=== PATIENT | female | born 2000 | race Caucasian/White ===

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

== ENCOUNTER 2020-05-22 12:50 | Emergency (ER) | payer BC ==
[~2020-05-22] VITALS: Ht 162.6 cm; Wt 60.0 kg
[2020-05-22 14:12] LABS: HEMATOCRIT 40.8 % (37.0-47.0); HEMOGLOBIN 13.1 g/dl (12.0-16.0); IMMATURE GRANULOCYTES 0.2 % (0.0-5.0); MEAN CELL VOLUME 85.2 fL CALC (80.0-100.0); MEAN CORPUSCULAR HGB 27.3 pG CALC (26.0-32.0); MEAN CORPUSCULAR HGB CONC 32.1 g/dL CAL (32.0-36.0); NEUT# 5.13 thou/uL (2.00-7.15); RED BLOOD COUNT 4.79 mill/uL (4.20-5.60); RED CELL DISTRI WIDTH 12.6 % (11.5-15.5); URINE BILIRUBIN - DIPSTICK NEGATIVE (NEGATIVE); URINE BLOOD DIPSTICK NEGATIVE (NEGATIVE); URINE COLOR YELLOW; URINE GLUCOSE - DIPSTICK NEGATIVE (NEGATIVE); URINE KETONE NEGATIVE (NEGATIVE); URINE NITRITE - DIPSTICK NEGATIVE (Negative); URINE PH 6.5 (4.5-8.0); URINE PROTEIN - DIPSTICK NEGATIVE (NEG-TRACE); URINE UROBILINOGEN - DIPSTICK 0.2 E.U./dL (0.2)
[2020-05-22 14:16] LABS: URINE LEUK ESTERASE SMALL (NEGATIVE)
[2020-05-22 14:24] LABS: URINE SQUAMOUS EPITHELIAL CELL FEW EPI/hpf (0-FEW)
[2020-05-22 14:31] LABS: ALBUMIN 4.3 g/dL (3.2-5.0); ALKALINE PHOSPHATASE 112 u/l (38-126); BILIRUBIN, TOTAL 0.8 mg/dL (0.0-1.4); BUN 10 mg/dL (7-17); BUN/CREATININE RATIO 14 (12-20 (CALC)); CARBON DIOXIDE 21 mmol/l (22-30); CHLORIDE 106 mmol/l (95-108); CREATININE 0.7 mg/dL (0.5-1.0); GFR > 60 ML/MIN (>=60 (CALC)); GFR FOR AFR.AMER. > 60 ML/MIN (>=60 (CALC)); LIPASE 51 u/l (23-300); POTASSIUM 3.9 mmol/l (3.5-5.1); SGOT/AST 24 u/l (14-36); TOTAL PROTEIN 7.7 g/dL (6.3-8.2)
[2020-05-22 14:32] LABS: ANION GAP 14 (6-22 (CALC)); SODIUM 137 mmol/l (137-146)
[2020-05-22] MEDS ORDERED: ZOFRAN4 MG/TAB PO (16:51)
[2020-05-22 17:06] VITALS: BP 116/68
== END 2020-05-22 17:18 | disposition home or self-care (01) | DRG 392 ==
LOC: ED 12:50
PROVIDERS: Family Medicine
DX: R10.11 Right upper quadrant pain (principal); R11.0 Nausea; K21.9 Gastro-esophageal reflux disease without esophagitis

== ENCOUNTER 2021-01-24 10:44 | Emergency (ER) | payer SELFPAY ==
[~2021-01-24] VITALS: Ht 162.6 cm; Wt 54.5 kg
[~2021-01-24 10:44] MED LIST changes: +ZOFRAN4 MG/TAB PO
[2021-01-24 11:55] LABS: HEMATOCRIT 40.3 % (37.0-47.0); HEMOGLOBIN 13.4 g/dl (12.0-16.0); IMMATURE GRANULOCYTES 0.1 % (0.0-5.0); MEAN CELL VOLUME 86.3 fL CALC (80.0-100.0); MEAN CORPUSCULAR HGB 28.7 pG CALC (26.0-32.0); MEAN CORPUSCULAR HGB CONC 33.3 g/dL CAL (32.0-36.0); NEUT# 3.71 thou/uL (2.00-7.15); RED BLOOD COUNT 4.67 mill/uL (4.20-5.60); RED CELL DISTRI WIDTH 12.9 % (11.5-15.5)
[2021-01-24 12:07] LABS: ALBUMIN 4.5 g/dL (3.2-5.0); ALKALINE PHOSPHATASE 96 u/l (38-126); ANION GAP 13 (6-22 (CALC)); BUN 9 mg/dL (7-17); BUN/CREATININE RATIO 12 (12-20 (CALC)); CARBON DIOXIDE 23 mmol/l (22-30); CHLORIDE 105 mmol/l (95-108); CREATININE 0.7 mg/dL (0.5-1.0); GFR > 60 ML/MIN (>=60 (CALC)); GFR FOR AFR.AMER. > 60 ML/MIN (>=60 (CALC)); LIPASE 53 u/l (23-300); POTASSIUM 3.7 mmol/l (3.5-5.1); SGOT/AST 21 u/l (14-36); SODIUM 137 mmol/l (137-146); TOTAL PROTEIN 7.9 g/dL (6.3-8.2)
[2021-01-24 14:55] VITALS: BP 112/65
[2021-01-25] MEDS ORDERED: HYDROCO/APAP1 TA9 PO (14:25)
[2021-01-25] MEDS ORDERED: ONDANSETRON4 MG PO (14:25)
[2021-02-01] MEDS ORDERED: FIBER625 MG PO (13:52)
[2021-02-01] MEDS ORDERED: FISH OIL1000 MG PO (13:53)
[2021-02-01] MEDS ORDERED: [UNRECOGNIZED DRUG - OTHER] PO (13:55)
[2021-02-01] MEDS ORDERED: TRAMADOL HCL50 MG PO (13:55)
[2021-02-01] MEDS ORDERED: KETOROLAC10 MG PO (13:56)
== END 2021-01-24 14:55 | disposition home or self-care (01) | DRG 392 ==
LOC: ED 10:44
PROVIDERS: Family Medicine
DX: R10.11 Right upper quadrant pain (principal); R11.0 Nausea; K80.20 Calculus of gallbladder without cholecystitis without obstruction; K21.9 Gastro-esophageal reflux disease without esophagitis

== ENCOUNTER 2021-02-05 05:55 | Day surgery (SDC) | payer SELFPAY ==
[~2021-02-05 05:55] MED LIST changes: +FIBER625 MG PO; +FISH OIL1000 MG PO; +HYDROCO/APAP1 TA9 PO; +KETOROLAC10 MG PO; +ONDANSETRON4 MG PO; +TRAMADOL HCL50 MG PO; +[UNRECOGNIZED DRUG - OTHER] PO
[2021-02-05] MEDS ORDERED: PERCOCET 5/325M1 TAB PO (08:58)
[2021-02-05 09:45] VITALS: BP 119/63
== END 2021-02-05 10:05 | disposition home or self-care (01) | DRG 419 ==
LOC: ORM 05:55 → ENDO 05:55 → ORM 07:00 → ENDO 07:00 → ORM 10:05
PROVIDERS: ATTEND Surgery
PROC: 0FT44ZZ Resection of Gallbladder, Percutaneous Endoscopic Approach (ICD-10-PCS; principal; 2021-02-05)
DX: K80.10 Calculus of gallbladder with chronic cholecystitis without obstruction (principal); Z20.822 Contact with and (suspected) exposure to COVID-19
CPT/HCPCS: J2710

== ENCOUNTER 2022-05-23 09:15 | Emergency (ER) | payer BC ==
[~2022-05-23] VITALS: Ht 162.6 cm; Wt 61.3 kg
[2022-05-23] VITALS (8 sets, daily range): BP systolic 109–134; BP diastolic 72–85
[~2022-05-23 09:15] MED LIST changes: +PERCOCET 5/325M1 TAB PO
[2022-05-23 10:39] LABS: HEMATOCRIT 40.1 % (37.0-47.0); HEMOGLOBIN 13.8 g/dl (12.0-16.0); IMMATURE GRANULOCYTES 0.1 % (0.0-5.0); MEAN CELL VOLUME 85.5 fL CALC (80.0-100.0); MEAN CORPUSCULAR HGB 29.4 pG CALC (26.0-32.0); MEAN CORPUSCULAR HGB CONC 34.4 g/dL CAL (32.0-36.0); NEUT# 5.03 thou/uL (2.00-7.15); RED BLOOD COUNT 4.69 mill/uL (4.20-5.60); RED CELL DISTRI WIDTH 12.1 % (11.5-15.5)
[2022-05-23 10:44] LABS: ALBUMIN 4.3 g/dL (3.2-5.0); ALKALINE PHOSPHATASE 96 u/l (38-126); ANION GAP 15 (6-22 (CALC)); BILIRUBIN, TOTAL 0.7 mg/dL (0.0-1.4); BUN 7 mg/dL (7-17); BUN/CREATININE RATIO 10 (12-20 (CALC)); CARBON DIOXIDE 22 mmol/l (22-30); CHLORIDE 106 mmol/l (95-108); CREATININE 0.7 mg/dL (0.5-1.0); GFR FOR AFR.AMER. > 60 ML/MIN (>=60 (CALC)); GFR OTHER RACES > 60 ML/MIN (>=60 (CALC)); POTASSIUM 3.7 mmol/l (3.5-5.1); SGOT/AST 19 u/l (14-36); SODIUM 139 mmol/l (137-146); TOTAL PROTEIN 7.6 g/dL (6.3-8.2)
== END 2022-05-23 12:25 | disposition home or self-care (01) | DRG 103 ==
LOC: ED 09:15
PROVIDERS: Family Medicine
DX: R51.9 Headache, unspecified (principal); I35.9 Nonrheumatic aortic valve disorder, unspecified; Z20.822 Contact with and (suspected) exposure to COVID-19
CPT/HCPCS: J1100; Q9967

== ENCOUNTER 2022-09-24 08:52 | Emergency (ER) | payer BC ==
[~2022-09-24] VITALS: Ht 162.6 cm; Wt 62.0 kg
[2022-09-24] VITALS (18 sets, daily range): BP systolic 103–126; BP diastolic 70–87
[2022-09-24 10:50] LABS: BASO% 0.8 % (0-3); EOS% 1.8 % (0-8); HEMATOCRIT 38.8 % (37.0-47.0); HEMOGLOBIN 13.7 g/dl (12.0-16.0); IMMATURE GRANULOCYTES 0.1 % (0.0-5.0); LYMPH% 26.5 % (15-41); MEAN CELL VOLUME 85.8 fL CALC (80.0-100.0); MEAN CORPUSCULAR HGB 30.3 pG CALC (26.0-32.0); MEAN CORPUSCULAR HGB CONC 35.3 g/dL CAL (32.0-36.0); MONO% 8.1 % (2-13); NEUT# 4.89 thou/uL (2.00-7.15); NEUT% 62.7 % (42-76); RED BLOOD COUNT 4.52 mill/uL (4.20-5.60); RED CELL DISTRI WIDTH 12.3 % (11.5-15.5)
[2022-09-24 10:57] LABS: URINE BILIRUBIN - DIPSTICK NEGATIVE (NEGATIVE); URINE BLOOD DIPSTICK NEGATIVE (NEGATIVE); URINE COLOR YELLOW; URINE GLUCOSE - DIPSTICK NEGATIVE (NEGATIVE); URINE KETONE NEGATIVE (NEGATIVE); URINE LEUK ESTERASE NEGATIVE (NEGATIVE); URINE PH 6.5 (4.5-8.0); URINE PROTEIN - DIPSTICK NEGATIVE (NEG-TRACE); URINE UROBILINOGEN - DIPSTICK 0.2 E.U./dL (0.2)
[2022-09-24 10:59] LABS: ALBUMIN 4.3 g/dL (3.2-5.0); ALKALINE PHOSPHATASE 98 u/l (38-126); ANION GAP 9 (6-22 (CALC)); BILIRUBIN, TOTAL 0.5 mg/dL (0.0-1.4); BUN 5 mg/dL (7-17); BUN/CREATININE RATIO 8 (12-20 (CALC)); CARBON DIOXIDE 25 mmol/l (22-30); CHLORIDE 109 mmol/l (95-108); CREATININE 0.6 mg/dL (0.5-1.0); GFR FOR AFR.AMER. > 60 ML/MIN (>=60 (CALC)); GFR OTHER RACES > 60 ML/MIN (>=60 (CALC)); LIPASE 41 u/l (23-300); POTASSIUM 3.8 mmol/l (3.5-5.1); SGOT/AST 19 u/l (14-36); SODIUM 138 mmol/l (137-146); TOTAL PROTEIN 7.3 g/dL (6.3-8.2)
[2022-09-24 11:03] LABS: URINE NITRITE - DIPSTICK NEGATIVE (Negative)
[2022-09-24] MEDS ORDERED: PROTONIX40 M2 PO (13:58)
== END 2022-09-24 14:43 | disposition home or self-care (01) | DRG 392 ==
LOC: ED 08:52
PROVIDERS: Family Medicine
DX: R10.31 Right lower quadrant pain (principal); R10.11 Right upper quadrant pain
CPT/HCPCS: Q9967

== ENCOUNTER 2022-12-22 21:24 | Emergency (ER) | payer BC ==
[2022-12-22] VITALS (7 sets, daily range): BP systolic 100–124; BP diastolic 59–87
[~2022-12-22] VITALS: Ht 162.6 cm; Wt 54.0 kg
[~2022-12-22 21:24] MED LIST changes: +PROTONIX40 M2 PO
[2022-12-22 22:57] LABS: ALBUMIN 4.6 g/dL (3.2-5.0); ALKALINE PHOSPHATASE 106 u/l (38-126); ANION GAP 14 (6-22 (CALC)); BILIRUBIN, TOTAL 0.4 mg/dL (0.02-1.3); BUN 7 mg/dL (7-17); BUN/CREATININE RATIO 12 (12-20 (CALC)); CARBON DIOXIDE 21 mmol/l (22-30); CHLORIDE 107 mmol/l (95-108); CREATININE 0.6 mg/dL (0.5-1.0); GFR FOR AFR.AMER. > 60 ML/MIN (>=60 (CALC)); GFR OTHER RACES > 60 ML/MIN (>=60 (CALC)); LIPASE 46 u/l (23-300); POTASSIUM 3.8 mmol/l (3.5-5.1); SGOT/AST 30 u/l (14-36); SODIUM 138 mmol/l (137-146); TOTAL PROTEIN 8.1 g/dL (6.3-8.2)
[2022-12-22 22:59] LABS: BASO% 0.5 % (0-3); EOS% 0.1 % (0-8); HEMATOCRIT 41.9 % (37.0-47.0); HEMOGLOBIN 13.8 g/dl (12.0-16.0); IMMATURE GRANULOCYTES 0.1 % (0.0-5.0); LYMPH% 10.9 % (15-41); MEAN CORPUSCULAR HGB 28.3 pG CALC (26.0-32.0); MEAN CORPUSCULAR HGB CONC 32.9 g/dL CAL (32.0-36.0); NEUT# 11.83 thou/uL (2.00-7.15); NEUT% 83.4 % (42-76); RED BLOOD COUNT 4.87 mill/uL (4.20-5.60); RED CELL DISTRI WIDTH 12.1 % (11.5-15.5)
[2022-12-22 23:52] LABS: URINE BILIRUBIN - DIPSTICK NEGATIVE (NEGATIVE); URINE BLOOD DIPSTICK NEGATIVE (NEGATIVE); URINE COLOR YELLOW; URINE GLUCOSE - DIPSTICK NEGATIVE (NEGATIVE); URINE KETONE NEGATIVE (NEGATIVE); URINE LEUK ESTERASE NEGATIVE (NEGATIVE); URINE NITRITE - DIPSTICK NEGATIVE (Negative); URINE PH 6.5 (4.5-8.0); URINE PROTEIN - DIPSTICK NEGATIVE (NEG-TRACE); URINE SPECIFIC GRAVITY 1.015; URINE UROBILINOGEN - DIPSTICK 0.2 E.U./dL (0.2)
[2022-12-23] VITALS: BP 114/80
[2022-12-23] MEDS ORDERED: COMPAZINE10 MG PO (00:08)
[2022-12-23] MEDS ORDERED: MECLIZINE25 MG PO (00:08)
[2022-12-23 00:15] VITALS: BP 121/77
== END 2022-12-23 00:32 | disposition home or self-care (01) | DRG 149 ==
LOC: ED 21:24
PROVIDERS: Family Medicine
DX: R42 Dizziness and giddiness (principal); K52.9 Noninfective gastroenteritis and colitis, unspecified; R11.2 Nausea with vomiting, unspecified; G40.909 Epilepsy, unspecified, not intractable, without status epilepticus

== ENCOUNTER 2023-03-03 18:16 | Emergency (ER) | payer BC ==
[~2023-03-03] VITALS: Ht 162.6 cm; Wt 55.0 kg
[~2023-03-03 18:16] MED LIST changes: +COMPAZINE10 MG PO; +DEPO-PROVER150 MG/ML IM; +MECLIZINE25 MG PO
[2023-03-03 19:55] LABS: BASO% 0.8 % (0-3); EOS% 2.3 % (0-8); HEMATOCRIT 42.3 % (37.0-47.0); HEMOGLOBIN 14.1 g/dl (12.0-16.0); IMMATURE GRANULOCYTES 0.1 % (0.0-5.0); MEAN CELL VOLUME 86.2 fL CALC (80.0-100.0); MEAN CORPUSCULAR HGB 28.7 pG CALC (26.0-32.0); MEAN CORPUSCULAR HGB CONC 33.3 g/dL CAL (32.0-36.0); MONO% 9.4 % (2-13); NEUT# 5.1 thou/uL (2.00-7.15); NEUT% 50.4 % (42-76); RED BLOOD COUNT 4.91 mill/uL (4.20-5.60); RED CELL DISTRI WIDTH 12.2 % (11.5-15.5)
[2023-03-03 19:55] LABS: URINE BILIRUBIN - DIPSTICK NEGATIVE (NEGATIVE); URINE BLOOD DIPSTICK NEGATIVE (NEGATIVE); URINE COLOR YELLOW; URINE GLUCOSE - DIPSTICK NEGATIVE (NEGATIVE); URINE KETONE NEGATIVE (NEGATIVE); URINE PROTEIN - DIPSTICK NEGATIVE (NEG-TRACE); URINE UROBILINOGEN - DIPSTICK 0.2 E.U./dL (0.2)
[2023-03-03 19:59] LABS: URINE LEUK ESTERASE SMALL (NEGATIVE); URINE NITRITE - DIPSTICK NEGATIVE (Negative)
[2023-03-03 20:04] LABS: ALBUMIN 4.7 g/dL (3.2-5.0); ALKALINE PHOSPHATASE 101 u/l (38-126); ANION GAP 17 (6-22 (CALC)); BILIRUBIN, TOTAL 0.4 mg/dL (0.02-1.3); BUN 7 mg/dL (7-17); BUN/CREATININE RATIO 11 (12-20 (CALC)); CARBON DIOXIDE 21 mmol/l (22-30); CHLORIDE 105 mmol/l (95-108); CREATININE 0.7 mg/dL (0.5-1.0); GFR FOR AFR.AMER. > 60 ML/MIN (>=60 (CALC)); GFR OTHER RACES > 60 ML/MIN (>=60 (CALC)); LIPASE 59 u/l (23-300); POTASSIUM 3.7 mmol/l (3.5-5.1); SGOT/AST 28 u/l (14-36); SODIUM 140 mmol/l (137-146); TOTAL PROTEIN 8.3 g/dL (6.3-8.2)
[2023-03-03 20:05] LABS: URINE RBC 0-2 RBC/hpf (0-5); URINE SQUAMOUS EPITHELIAL CELL FEW EPI/hpf (0-FEW)
[2023-03-03] MEDS ORDERED: PEPCID40 MG PO (21:36)
[2023-03-03 22:15] VITALS: BP 110/78
== END 2023-03-03 22:15 | disposition home or self-care (01) | DRG 392 ==
LOC: ED 18:16
PROVIDERS: Nurse Practitioner
DX: R10.9 Unspecified abdominal pain (principal); I35.8 Other nonrheumatic aortic valve disorders; Z87.19 Personal history of other diseases of the digestive system

== ENCOUNTER 2023-03-27 07:53 | Day surgery (SDC) | payer BC ==
[~2023-03-27 07:53] MED LIST changes: +PEPCID40 MG PO
[2023-03-27 10:52] VITALS: BP 111/79
== END 2023-03-27 11:05 | disposition home or self-care (01) | DRG 392 ==
LOC: ENDO 07:53
PROVIDERS: ATTEND Surgery
PROC: 0DJD8ZZ Inspection of Lower Intestinal Tract, Via Natural or Artificial Opening Endoscopic (ICD-10-PCS; principal; 2023-03-27)
DX: R10.11 Right upper quadrant pain (principal); K64.4 Residual hemorrhoidal skin tags; Z80.0 Family history of malignant neoplasm of digestive organs; Z90.49 Acquired absence of other specified parts of digestive tract

== ENCOUNTER 2024-05-05 13:47 | Emergency (ER) | payer OTHER ==
[2024-05-05] VITALS (19 sets, daily range): BP systolic 107–120; BP diastolic 68–80
[~2024-05-05] VITALS: Ht 162.6 cm; Wt 59.8 kg
[~2024-05-05 13:47] MED LIST changes: +NAPROXEN500 MG PO
[2024-05-05 14:22] LABS: BASO% 0.7 % (0-3); EOS% 2.2 % (0-8); HEMATOCRIT 39.7 % (37.0-47.0); HEMOGLOBIN 13.5 g/dl (12.0-16.0); IMMATURE GRANULOCYTES 0.3 % (0.0-5.0); LYMPH% 32.9 % (15-41); MEAN CELL VOLUME 85.9 fL CALC (80.0-100.0); MEAN CORPUSCULAR HGB 29.2 pG CALC (26.0-32.0); MONO% 10.9 % (2-13); NEUT# 5.33 thou/uL (2.00-7.15); RED BLOOD COUNT 4.62 mill/uL (4.20-5.60); RED CELL DISTRI WIDTH 12.5 % (11.5-15.5)
[2024-05-05 14:29] LABS: ALBUMIN 4.6 g/dL (3.2-5.0); ALKALINE PHOSPHATASE 106 u/l (38-126); ANION GAP 10 (6-22 (CALC)); BUN 7 mg/dL (7-17); BUN/CREATININE RATIO 9 (12-20 (CALC)); CARBON DIOXIDE 23 mmol/l (22-30); CHLORIDE 111 mmol/l (95-108); CREATININE 0.7 mg/dL (0.5-1.0); ESTIMATED GFR 122 ML/MIN (>=90 (CALC)); POTASSIUM 3.9 mmol/l (3.5-5.1); SGOT/AST 27 u/l (14-36); SODIUM 139 mmol/l (137-146); TOTAL PROTEIN 7.9 g/dL (6.3-8.2)
[2024-05-05 14:32] LABS: BILIRUBIN, TOTAL 0.7 mg/dL (0.02-1.3)
[2024-05-05 16:29] LABS: URINE BILIRUBIN - DIPSTICK Negative (NEGATIVE); URINE BLOOD DIPSTICK Negative (NEGATIVE); URINE GLUCOSE - DIPSTICK Negative (NEGATIVE); URINE KETONE Negative (NEGATIVE); URINE LEUK ESTERASE Trace (NEGATIVE); URINE NITRITE - DIPSTICK Negative (Negative); URINE PROTEIN - DIPSTICK Negative (NEG-TRACE); URINE UROBILINOGEN - DIPSTICK 0.2 E.U./dL (0.2)
[2024-05-05 16:30] LABS: URINE COLOR Yellow
[2024-05-05] MEDS ORDERED: KETOROLAC TROMETHAMINE 30 MG/ML SDV IV ONE (16:45)
[2024-05-05] MEDS ORDERED: DEXAMETHASONE SOD. PHOSPHATE 10 MG/ML VIAL IV ONE (16:45)
[2024-05-05] MEDS ORDERED: NAPROXEN500 MG PO (18:11)
== END 2024-05-05 18:25 | disposition home or self-care (01) ==
LOC: ED 13:47
PROVIDERS: Family Medicine; Nurse Practitioner
DX: R07.89 Other chest pain (principal); R51.9 Headache, unspecified; Q23.1 Congenital insufficiency of aortic valve; Z20.822 Contact with and (suspected) exposure to COVID-19

== ENCOUNTER 2024-06-14 14:25 | Emergency (ER) | payer OTHER ==
[~2024-06-14] VITALS: Ht 162.6 cm; Wt 61.2 kg
[2024-06-14 14:47] VITALS: BP 130/85
[2024-06-14 15:00] VITALS: BP 113/77
[2024-06-14] MEDS ORDERED: KETOROLAC TROMETHAMINE 30 MG/ML SDV IM ONE (15:10)
[2024-06-14 15:15] VITALS: BP 111/78
== END 2024-06-14 15:34 | disposition home or self-care (01) | DRG 563 ==
LOC: ED 14:25
DX: S93.402A Sprain of unspecified ligament of left ankle, initial encounter (principal); Q23.1 Congenital insufficiency of aortic valve; X50.0XXA Overexertion from strenuous movement or load, initial encounter